=== PATIENT | male | born 1975 | race Caucasian/White ===

== ENCOUNTER → 2017-07-13 17:32 | Outpatient (CLI) | payer MEDICAID ==
[2013-03-26 09:12] VITALS: BMI 34.7
[2017-07-13 18:14] LABS: MORPHOLOGY - SEMEN 80 % (30-100); MOTILITY - SEMEN 75 % (70-100); VOLUME - SEMEN 3 MLS (2.0-3.0)
[2017-07-13 18:15] LABS: PH SEMEN 8 (7-8)
[2017-07-13 18:34] LABS: SPERMATOZOA COUNT 30 MILL/ML (60-150)
== END | disposition home or self-care (01) ==
LOC: D.LAB 17:32
PROVIDERS: Emergency Medicine
DX: Z31.41 Encounter for fertility testing (principal)